=== PATIENT | male | born 1975 | race American Indian/Alaskan Native ===

== ENCOUNTER 2017-01-03 13:59 | Outpatient (CLI) | payer OTHER ==
--- NOTE | 2017-01-04 10:34 | Magnetic Resonance Report ---
MRI scan of brain: Compared to 11/30/15. History: Persistent headaches. Technique: Multiplanar, multisequence images were obtained without and with contrast injection. Findings: Ventricles are normal in size and midline in location. No evidence of acute ischemia or hemorrhage. No extra-axial fluid collection. Normal brainstem and cerebellum. Based at the left falx cerebri, there is elliptical dural mass measuring 3 x 0.5 x 2 cm. 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 No significant interval change in size and configuration. 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
== END 2017-01-03 14:00 | disposition home or self-care (01) ==
LOC: MRI 13:59
PROVIDERS: ATTEND Internal Medicine
DX: G43.909 Migraine, unspecified, not intractable, without status migrainosus (principal)
CPT/HCPCS: 70553; A9577